=== PATIENT | female | born 1950 ===

== ENCOUNTER 2020-04-23 16:13 | Emergency (ER) | payer OTHER ==
[~2020-04-23] VITALS: Ht 157.5 cm; Wt 65.8 kg
[2020-04-23] MEDS ORDERED: ATORVASTATIN CA10 MG PO (17:09)
[2020-04-23] MEDS ORDERED: ATENOLOL25 MG PO (17:09)
[2020-04-23] MEDS ORDERED: VITAMIN D350 MCG PO (17:09)
[2020-04-23] MEDS ORDERED: METOPROLOL SUCC25 MG PO (17:09)
== END 2020-04-23 21:21 | disposition home or self-care (01) ==
LOC: ER 16:13
DX: R10.84 Generalized abdominal pain (principal); R53.1 Weakness; R53.81 Other malaise; Z20.822 Contact with and (suspected) exposure to COVID-19